=== PATIENT | female | born 1990 | race African-American/Black ===

== ENCOUNTER 2018-03-12 21:45 | Emergency (ER) | payer OTHER ==
[~2018-03-12] VITALS: Ht 165.1 cm; Wt 131.5 kg
[~2018-03-12 21:45] MED LIST: AUGMENTIN 875875 MG PO; FLONASE 0.05%50 MCG NASAL; TRINESSA1 EACH PO
[2018-03-12] MEDS ORDERED: NORCO 5-325 TA1 EACH PO (22:41)
[2018-03-12 23:15] VITALS: BP 141/65
== END 2018-03-12 23:17 | disposition home or self-care (01) ==
LOC: ER 21:45
DX: S82.51XA Displaced fracture of medial malleolus of right tibia, initial encounter for closed fracture (principal); J42 Unspecified chronic bronchitis; W22.8XXA Striking against or struck by other objects, initial encounter; Y92.89 Other specified places as the place of occurrence of the external cause; Y93.89 Activity, other specified; Y99.8 Other external cause status